=== PATIENT | male | born 1985 | race Caucasian/White ===

== ENCOUNTER 2024-12-30 14:07 | Outpatient (OUT) | payer MEDICAID, SELFPAY ==
--- OUTSIDE RECORDS SUMMARY | 2024-07-24 07:40 | XMS_ITS | Continuity of Care Document ---
Author Organization [facility] Address [address] [place] [address] Phone Care Team Providers Care Body Finisher Name Role Phone Karlos Martin Unavailable Unavailable Allergies, Adverse Reactions, Alerts Substance Reaction Status Criticality No Known Allergies Active No Inform ation No Known Allergies Active No Inform ation Medications Medication Instructions Dosage Effective Dates (start - stop) Status Comments Adderall 10 mg tablet take 1 tablet by o ral route every day before breakfast 10 MG - Active Adderall 30 mg tablet take 1 tablet by o ral route every day before breakfast 30 MG - Active Seroquel 300 mg tablet take 1 tablet by oral route every day 300 MG - Active Seroquel 300 mg tablet take 1 tablet by oral route every day 300 MG - Active Adderall 10 mg tablet take 1 tablet by o ral route Q afternoon - Active F90.9 Adderall XR 30 mg capsule,extended release take 1 capsule by oral route every day in the morning upon awakening 30 MG - Active F90.9 Procedures Procedure Date OFFICE/OUTPATIENT VISIT, EST DIAST BP 80-89 MM HG SYST BP < 130 MM HG MED LIST DOCD IN [facility] RVW MEDS BY RX/DR IN [facility] PT TOBACCO USE DONE VD TLK Pos clin depres scrn f/u doc ROUTINE VENIPUNCTURE Intraoral-complete Series (bw) Oral Hygiene Instruction Comp Oral Eval New/estab Patient 2023 PSYTX PT&/FAMILY 60 MINUTES PSYCH DIAGNOSTIC EVALUATION OFFICE/OUTPATIENT VISIT, EST OFFICE/OUTPATIENT VISIT, EST OFFICE/OUTPATIENT VISIT, EST OFFICE/OUTPATIENT VISIT, EST OFFICE/OUTPATIENT VISIT, EST OFFICE/OUTPATIENT VISIT, EST OFFICE/OUTPATIENT VISIT, EST OFFICE/OUTPATIENT VISIT, EST Advance Directives Directive Yes / No Effective Date File Name No Information Encounters Encounter Description Practice Location Reason(s) For Visit Diagnoses Date Provider Providers Copied on Encounter [facility], [address] [place] [address], [id number] , tel: [phone] Crisis Center No Information 5 Leonor Jesus. [address] [place] [address], [id number] , [place]. tel: [phone] [facility], [address] [place] [address], [id number] , [place] tel: [phone] Crisis Center No Information 5 Leonor Jesus. [address] [place] [address], [id number] , [place]. tel: [phone] [facility], [address] [place] [address], [id number] , [place] tel: [phone] Crisis Center No Information 5 Leonor Jesus. [address] [place] [address], [id number] , [place]. tel: [phone] OFFICE/OUTPA TIENT VISIT, EST [facility], [address] [place] [address], [id number] , [place] tel:+ [phone] [facility] Establish Care (chief complaint)L ab Draw (chief complaint) Body mass index [BMI] 25.0-25.9, adultHomelessness unspecifiedAttention -deficit hyperactivity disorder, other typeNicotine dependence, unspecified, uncomplicatedScreeni ng for HIV (human immunodeficiency virus)Need for hepatitis C screening test 4 Dar Sales. [address] [place] [address], [id number] , [place]. tel:+ [phone] [facility], [address] [place] [address], [id number] , [place] tel: [phone] [facility] DN (chief complaint) Encounter for screening for dental disorders 4 Zina Nguyen. . tel:+ [phone] PSYTX PT&/FAMILY 60 MINUTES [facility], [address] [place] [address], [id number] , [place] tel: [phone] Crisis Center Other stimulant dependence, uncomplicatedAdjustm ent disorder with anxietyPost-traumati c stress disorder, chronicAttention-def icit hyperactivity disorder, unspecified typeMajor depressive disorder, recurrent, moderate Sep-3 0- 4 Mil Araujo. [address] [place] [address], [id number], [place]. tel: [phone] PSYCH DIAGNOSTIC EVALUATION [facility], [address] [place] [address], [id number] , [place] tel: [phone] Crisis Center Other stimulant dependence, uncomplicatedAdjustm ent disorder with anxietyPost-traumati c stress disorder, chronicAttention-def icit hyperactivity disorder, unspecified typeMajor depressive disorder, recurrent, moderate Sep-2 - 4 Mil Araujo. [address] [place] [address], [id number], [place]. tel: [phone] [facility], [address] [place] [address], [id number] , [place] tel:+ [phone] [facility] med refill (chief complaint)m ed refill (chief complaint) ADHDInsomniaBody mass index (BMI) 26.0-26.9, adult 201 9 Isaiah Reyes. [address] [place] [address], [id number] , [place]. tel: [phone] [facility], [address] [place], [place], [id number] , [place] tel: [phone] [facility] med refill (chief complaint) Body mass index (BMI) 26.0-26.9, adultADHD Dec 8 Jovana Araujo. [address] [place] [address], [id number] , [place]. tel: [phone] OFFICE/OUTPA TIENT VISIT, [facility], [address] [place] [address], [id number] , [place] tel: [phone] [facility] med refill (chief complaint) Body mass index (BMI) 25.0-25.9, adultADHDOpioid dependence, in remissionAnxietyInso mnia 8 Jovana Araujo. [address] [place] [address], [id number] , [place]. tel: [phone] [facility], [address] [place] [address], [id number] , [place] tel: [phone] [facility] med refill (chief complaint) ADHDOpioid dependence, in remissionAnxietyInso mnia 8 Abraham Delacruz. [address] [place] [address], [id number] , [place]. tel: [phone] OFFICE/OUTPA TIENT VISIT, [facility], [address] [place] [address], [id number] , [place] tel: [phone] [facility] med refill (chief complaint) ADHDBody mass index (BMI) 27.0-27.9, adultOpioid dependence, in remissionAnxiety 8 Abraham Delacruz. [address] [place] [address], [id number] , [place]. tel: [phone] OFFICE/OUTPA TIENT VISIT, [facility], [address] [place] [address], [id number] , [place] tel: [phone] [facility] med refill (chief complaint) Body mass index (BMI) 27.0-27.9, adultAnxietyADHD 8 Abraham Delacruz. [address] [place] [address], [id number] , [place]. tel:+ [phone] OFFICE/OUTPA TIENT VISIT, [facility], [address] [place], [place], [id number] , [place] tel: [phone] [facility] med refill (chief complaint) Body mass index (BMI) 27.0-27.9, adultADHDAnxietyInso mniaOpioid dependence, in remission 8 Abraham Delacruz. [address] [place] [address], [id number] , [place]. tel: [phone] [facility], [address] [place] [address], [id number] , [place] tel: [phone] [facility] medication refill (chief complaint) Body mass index (BMI) 26.0-26.9, adultADHDAnxietyInso mniaOpioid dependence, in remission 8 Abraham Delacruz. [address] [place] [address], [id number] , [place]. tel: [phone] OFFICE/OUTPA TIENT VISIT, [facility], [address] [place] [address], [id number] , [place] tel: [phone] [facility] medication refill (chief complaint)B P (chief complaint) ADHDAnxietyOpioid dependence, in remission 8 Abraham Delacruz. [address] [place] [address], [id number] , [place]. tel: [phone] OFFICE/OUTPA TIENT VISIT, [facility], [address] [place] [address], [id number] , [place] tel: [phone] [facility] medication refill (chief complaint) Body mass index (BMI) 27.0-27.9, adultAnxietyADHDOpio id dependence, in remission November-0 2- 8 Abraham Delacruz. [address] [place], [place], [id number] , [place]. tel: [phone] [facility], [address] [place] [address], [id number] , [place] tel: [phone] [facility] medication refill (chief complaint)s moker (chief complaint) ADHDAnxiety Oct-0 4 8 Abraham Delacruz. [address] [place] [address], [id number] , [place]. tel: [phone] [facility], [address] [place] [address], [id number] , [place] tel: [phone] [facility] med refill (chief complaint)E R follow up (chief complaint)D ennison: (chief complaint) ADHDOpioid dependence, in remission Sep-0 2 8 Aimee Blankenship. [address] [place] [address], [id number], [place]. tel: [phone] OFFICE/OUTPA TIENT VISIT, [facility], [address] [place] [address], [id number] , [place] tel: [phone] [facility] Adderall refill (chief complaint) ADHDAnxiety 8 Abraham Delacruz. [address] [place] [address], [id number] , [place]. tel: [phone] [facility], [address] [place] [address], [id number] , [place] tel: [phone] [facility] med refill (chief complaint) ADHDAnxiety 8 Abraham Delacruz. [address] [place] [address], [id number] , [place]. tel: [phone] OFFICE/OUTPA TIENT VISIT, [facility], [address] [place] [address], [id number] , [place] tel: [phone] [facility] medication refill (chief complaint) AnxietyADHD 7 Abraham Delacruz. [address], [place], [id number] , [place]. tel: [phone] [facility], [address] [place] [address], [id number] , [place] tel: [phone] [facility] med refill (chief complaint) ADHDAnxiety 7 Abraham Delacruz. [address], [place], [id number] , [place]. tel: [phone] [facility], [address] [place] [address], [id number] , [place] tel: [phone] [facility] est care (chief complaint)e levated lipids (chief complaint) ADHDAnxietyBody mass index (BMI) 26.0-26.9, adult Abraham Delacruz. [address] [place] [address], [id number] , [place]. tel: [phone] Family History Family Member Type Diagnosis Age At Onset Mother Problem (finding) attention deficit hyper activity disorder Mother Problem (finding) Thyroid disorder Mother Problem ADD/ADHD Payers Payer name Insurance type Covered democrat ID Adriane munoz(s) Anthem Medicaid CFC [id number] Social History Type Description Quantity Date Captured Comments Sex Male Smoking Status No Information Sexual Orientation Straight or heterosexual Gender Identity Male Chief Complaint And Reason For Visit No Information Reason For Referral Reason For Referral No Information Plan Of Treatment Date Type Action Status Goal Hep A. Due on du e Goal Hepatitis C screening. Due o n due Goal Tdap. Due on due Goal RLP. Due on due Goal Depression screening. Due on due Goal Lipid panel. Due on 027 due Goal Influenza vaccine. Due on Oc due Goal Tdap Vaccine. Due on 2023 due Goal PRAPARE ASSESSMENT. Due on O due Goal Unhealthy drug use screening . Due on due Goal Unhealthy drug use screening . Due on due Goal Hepatitis C screening. Due o n due Goal Tdap. Due on due Goal Depression screening. Due on due Goal Influenza vaccine. Due on Oc due Goal Tdap Vaccine. Due on 2023 due Goal PRAPARE ASSESSMENT. Due on O due Goal RLP. Due on due Goal Lifestyle education regardin g diet completed Goal Tobacco cessation counseling completed Goal Tobacco cessation counseling completed Goal Influenza vaccine. Due on Se due Goal Tdap. Due on due Goal Unhealthy drug use screening . Due on due Goal Hepatitis C screening. Due o n due Goal RLP. Due on due Goal Tdap Vaccine. Due on 2023 due Goal Depression screening. Due on due Goal PRAPARE ASSESSMENT. Due on S due Goal Tdap. Due on due Goal Unhealthy drug use screening . Due on due Goal Influenza vaccine. Due on Se due Goal PRAPARE ASSESSMENT. Due on S due Goal Hepatitis C screening. Due o n due Goal Depression screening. Due on due Goal RLP. Due on due Goal Tdap Vaccine. Due on 2023 due Goal Tobacco cessation counseling completed Goal Dietary management education , guidance, and counseling completed Goal Dietary management education , guidance, and counseling completed Goal Tobacco cessation counseling completed Goal Tobacco cessation counseling completed Goal Dietary management education , guidance, and counseling completed Goal Dietary management education , guidance, and counseling completed Goal Dietary management education , guidance, and counseling completed Goal Tobacco cessation counseling completed Goal Dietary management education , guidance, and counseling completed Goal Tobacco cessation counseling completed Goal Dietary management education , guidance, and counseling completed Goal Tobacco cessation counseling completed Goal Tobacco cessation counseling completed Goal Tobacco cessation counseling completed Goal Dietary management education , guidance, and counseling completed History Of Present Illness Encounter Date Complaint History Of Prese nt Illness Lab Draw Lab draw x1 LAC, 2x2 and bandage applied. Patient tolerated well. //ALEXANDRA Pike Establish Care Patient is here to establish care. Patient states he has ADHD and is wondering if he could switch to something other than Adderall. Patient is also concerned with lump on the right side of his neck beneath his ear. Patient states it has been there for roughly a year and is painful. Patient has a primary care doctor, states it has been around a year since last visit. Patient denies any other concerns at this time. Patient admits to smoking cigarettes daily, about a half pack per day. Patient denies use of alcohol and drugs. Patient refuses Flu vaccine today. //ALEXANDRA Pike MARIBEL LÓPEZ med refill Pt here today fo r medication refills on Adderall and Seroquel. Pt has no concerns or complaints at this time. Josh,APPAREL MANAGER Patient takes Adderall daily with last dose this AM of the extended release. Seroquel QHS for sleeping issues. Denies any issues with the medications, requesting refill. ADHD since he was a child, on ritalin as a young child. Denies any depression or suicidal ideation. Denies any homicidal ideations. Occasional anxiety due to ADHD. Sleeping issues for several years. Does not believe that these are related to the intake of the Adderall. RGonzales CNPPt states that his last dose of Adderall was about 4-5 days ago. Josh, APPAREL MANAGER med refill med refill Patient is here for Adderall refill. He is doing well on the two doses of the medication and has no other issues to discuss today. [facility] today for refills on his Adderall medication. He is curently on the XR 30 mg and 10 mg. Patient states medication is working well for him. No other issues/concerns. [facility] med refill Patient is here for med refill. [facility] med refill Patient is here for an Adderall refill. He has just started a new job and is doing well. [facility] med refill Patient is here for adderall refill. [facility] med refill Patient is here to refill his Adderall and [facility]quel[facility] f or medication refill, Adderall. Denies any concerns at this time. Patient is also taking Seroquel for his sleep, which he is happy with and would like to continue. -Bonnie DWYER BP 140/82 recheck 1 Alina Phan RN medication refill adderall- talisha ent states it is working well. Alina Phan RN medication refill Pateint here f or medication refill, Adderall. Denies any concerns at this time. -Bonnie DWYER medication refill Patient here f or medication refill-- seroquel and adderall 30 mg. Both medications working well for patient. Alina Phan RN smoker 1/2 ppd-- 14 yea rs. ER follow up Pt was admitted to ER on 09-07-17 for drug overdose and was positive for cocaine, benzos, and opiates. Pt has been clean two years and has been going through a lot recently with news that his children are moving out of state and his mom has cancer. Pt has had this fentanyl saved for two years but hes not sure why and he wasn't having a craving but kind of wanted it to be the end for him because he has been having such a hard time. Pt has done a lot of sould searching and knows what he needs to do and does not feel he needs vivitrol and as thinks he has no issue with opiates. Pt sees C[facility] at [facility] and is planning to increase his visits. Pt is on probation for child support as well. Pt has a hard time peeing occasionally at probation d/t having kidney issues from an overdose several years ago. Pt was started on flomax but states if this does not work, he would like to know if we could write him a medical note about his peeing issues. Denys Aimee: As per above. Hi s only surgery was a tonsillectomy. There are no other significant illnesses. He states he is getting into [facility]. He was treated for increased cholesterol and lipids in the past. He states that he definitely needs his Adderall and it is wearing out prematurely in the day. med refill Pt states needs seroquel and adderall refilled. Denys Adderall refill Here for refill of Adderall. Also states Seroquel dosage does not seem to be helping him to fall asleep. No other concerns. Aakash Villegas RN med refill Pt needs refill on adderall and states zoloft is not helping at all. Pt would like to discuss possible seroquel to help him sleep and states is was discussed as a possibility last visit. Denys medication refill Patient here f or medication refill, Adderall. He states the 25mg of Adderall is working better than the original 20mg he was on. Patient states he never picked up the Zoloft, he was confused about rx and never received a call about a prescription being ready. -Bonnie DWYER med refill Pt here today fo r med refill and states after about 5 hours it feels like medication is wearing off. Denys est care Pt here today to est care and was seeing Dr. Deng and Manuel, last saw them about a year ago but wants to est care here. Pt is going back to work and states has had ADHD for year and would like to get back on medication to help with this. Denys elevated lipids Pt states used t o be on lipitor for elevated lipids and would like to discuss this. Denys Functional Status Date Functional Assessmen t No Information Instructions Date Instruction Additional Infor mation Giving encouragement to exercise Related to Body mass index [BMI] 25.0-25.9, adult Lifestyle education regarding di et Related to Body mass index [BMI] 25.0-25.9, adult Dietary management e ducation, guidance, and counseling Related to Body mass index (BMI) 26.0-26.9, adult Giving encouragement to exercise Related to Body mass index (BMI) 26.0-26.9, adult Giving encouragement to exercise Related to Body mass index (BMI) 26.0-26.9, adult Dietary management e ducation, guidance, and counseling Related to Body mass index (BMI) 26.0-26.9, adult Giving encouragement to exercise Related to Body mass index (BMI) 25.0-25.9, adult Dietary management e ducation, guidance, and counseling Related to Body mass index (BMI) 25.0-25.9, adult Dietary management e ducation, guidance, and counseling Related to Body mass index (BMI) 27.0-27.9, adult Giving encouragement to exercise Related to Body mass index (BMI) 27.0-27.9, adult Dietary management e ducation, guidance, and counseling Related to Body mass index (BMI) 27.0-27.9, adult Giving encouragement to exercise Related to Body mass index (BMI) 27.0-27.9, adult Giving encouragement to exercise Related to Body mass index (BMI) 26.0-26.9, adult Dietary management e ducation, guidance, and counseling Related to Body mass index (BMI) 26.0-26.9, adult Dietary management e ducation, guidance, and counseling Related to Body mass index (BMI) 27.0-27.9, adult Giving encouragement to exercise Related to Body mass index (BMI) 27.0-27.9, adult Giving encouragement to exercise Related to Body mass index (BMI) 26.0-26.9, adult Dietary management e ducation, guidance, and counseling Related to Body mass index (BMI) 26.0-26.9, adult Assessments Type Assessment Date No Information Patient Care Teams Name Effective Dates (start - stop) Status Members No Information
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
[2024-12-30 14:52] LABS: Basophils Percent Auto 0.4 % (0.2-2.0); Eosinophils Absolute Auto 0.3 10^3/uL (0.0-0.7); Eosinophils Percent Auto 2.4 % (0.9-7.0); Hematocrit 40.9 % (42.0-54.0); Hemoglobin 13.6 g/dL (14.0-18.0); Immature Granulocytes Abs Auto 0.14 10^3/uL (0.00-0.03); Immature Granulocytes Pct Auto 1.3 % (0.0-0.5); Lymphocytes Absolute Auto 2.3 10^3/uL (1.2-3.8); Lymphocytes Percent Auto 21.9 % (20.5-60.0); Mean Corpuscular HGB Conc 33.3 g/dL (29.9-35.2); Mean Corpuscular Hemoglobin 29.8 pg (25.9-34.0); Mean Corpuscular Volume 89.5 fL (80.0-94.0); Mean Platelet Volume 8.6 fL (9.5-13.5); Monocytes Absolute Auto 0.8 10^3/uL (0.3-0.8); Monocytes Percent Auto 7.2 % (1.7-12.0); Neutrophils Absolute Auto 7.1 10^3/uL (1.4-6.5); Neutrophils Percent Auto 66.8 % (43.0-75.0); Platelet Count 436 10^3/uL (150-450); Red Blood Count 4.57 10^6/uL (4.70-6.10); Red Cell Distribution Width 13.2 % (11.0-15.0); White Blood Count 10.6 10^3/uL (4.0-11.0)
[2024-12-30 15:27] LABS: Alanine Aminotransferase 33 U/L (16-63); Albumin Level 3.1 g/dL (3.4-5.0); Alkaline Phosphatase 70 U/L (46-116); Anion Gap 12.9; Aspartate Amino Transferase 19 U/L (15-37); BUN Creatinine Ratio 8.5; Bilirubin Total 0.2 mg/dL (0.2-1.0); Calcium 8.9 mg/dL (8.5-10.1); Carbon Dioxide 29.2 mmol/L (21.0-32.0); Chloride 105 mmol/L (98-107); Estimated GFR (African America >60 (>=60 mL/min/1.73m^2); Estimated GFR (Non-African Ame >60 (>=60 mL/min/1.73m^2); Globulin 3.1 g/dL; Glucose 125 mg/dL (74-106); Potassium 4.1 mmol/L (3.5-5.1); Sodium 143 mmol/L (136-145); Total Protein 6.2 g/dL (6.4-8.2)
[2024-12-31 05:07] LABS: HBsAg Screen Negative (Negative); HIV Ab/p24 Ag Screen Non Reactive (Non Reactive)
[2025-01-02 22:09] LABS: Hepatitis C Genotype 1a (.)
== END 2024-12-30 14:08 | disposition home or self-care (01) ==
PROVIDERS: Family Provider Internal Medicine; Visit Provider Nurse Practitioner Primary Care
DX: F15.20 Other stimulant dependence, uncomplicated (principal)
CPT/HCPCS: 36415; 80053; 85025; 86317; 87340; 87389; 87522; 87902